=== PATIENT | female | born 1970 | race Caucasian/White ===

== ENCOUNTER → 2016-07-30 | Outpatient (CLI) | payer OTHER ==
[~2016-07-30] MED LIST: BUSPAR 5MG TABLE5 MG PO; CATAPRES 0.1MG0.1 MG PO; CELEXA20 MG PO; COLACE 100MG C100 MG PO; COZAAR25 MG PO; HYDROCHLOROTHIA25 MG PO; LOPRESSOR50 MG PO; WELLBUTRIN SR150 MG PO; ZANTAC150 MG PO
== END ==
LOC: KOH-I 10:34
DX: E04.9 Nontoxic goiter, unspecified (principal); R74.8 Abnormal levels of other serum enzymes; K76.0 Fatty (change of) liver, not elsewhere classified; Z90.49 Acquired absence of other specified parts of digestive tract
CPT/HCPCS: 76536; 76705

== ENCOUNTER → 2016-10-01 | Outpatient (CLI) | payer OTHER | LOC: US 09-23 10:30 | DX: E04.1 Nontoxic single thyroid nodule (principal); M25.562 Pain in left knee | CPT/HCPCS: 10022; 73564; 76536 ==

== ENCOUNTER → 2016-10-07 | Outpatient (CLI) | payer OTHER ==
[2016-10-07 11:09] LABS: HEMOGLOBIN 13.7 gm/dl (12.3-15.3); RED BLOOD COUNT 4.64 M/UL (4.00-5.10); WHITE BLOOD COUNT 7.7 K/UL (4.5-11.0)
[2016-10-07 11:42] LABS: BUN/CREATININE RATIO 20 (0-10)
== END ==
LOC: OPSV2 10:00
PROVIDERS: Obstetrics & Gynecology
DX: Z01.810 Encounter for preprocedural cardiovascular examination (principal); Z01.812 Encounter for preprocedural laboratory examination; N92.0 Excessive and frequent menstruation with regular cycle
CPT/HCPCS: 36415; 80048; 81001; 85025; 93005

== ENCOUNTER → 2020-04-17 | Outpatient (CLI) | payer OTHER ==
[~2020-04-17] MED LIST changes: +IBU800 MG PO
== END ==
LOC: RAD 14:16
DX: M79.7 Fibromyalgia (principal); M35.01 Sjogren syndrome with keratoconjunctivitis; M25.561 Pain in right knee; M25.562 Pain in left knee; M17.0 Bilateral primary osteoarthritis of knee
CPT/HCPCS: 73564

== ENCOUNTER 2020-08-21 11:08 | Emergency (ER) | payer OTHER ==
[~2020-08-21 11:08] MED LIST changes: -IBU800 MG PO
[2020-08-21 12:17] LABS: HEMOGLOBIN 13.3 gm/dl (12.3-15.3); RED BLOOD COUNT 4.27 M/UL (4.00-5.10); WHITE BLOOD COUNT 6.9 K/UL (4.5-11.0)
[2020-08-21 12:36] LABS: BUN/CREATININE RATIO 17 (0-10)
[2020-08-21] MEDS ORDERED: IBU800 MG PO (13:30)
== END 2020-08-21 15:27 | disposition home or self-care (01) ==
LOC: ER1 11:08
PROVIDERS: Emergency Medicine
DX: J06.9 Acute upper respiratory infection, unspecified (principal); Z20.822 Contact with and (suspected) exposure to COVID-19
CPT/HCPCS: 0240U; 71045; 80053; 82550; 82553; 83874; 84484; 85025; 93005; 99284

== ENCOUNTER → 2021-12-05 | Outpatient (CLI) | payer OTHER ==
[~2021-12-05] MED LIST changes: +IBU800 MG PO
== END ==
LOC: US 13:43
DX: C73 Malignant neoplasm of thyroid gland (principal)
CPT/HCPCS: 76536